=== PATIENT | female | born 1995 | race Hispanic/Latino ===

== ENCOUNTER 2020-03-17 14:48 | Observation (INO) | payer BC ==
[~2020-03-17] VITALS: Ht 167.6 cm; Wt 116.1 kg
[2020-03-17 16:38] LABS: APPEARANCE,URINE Turbid (CLEAR); BILIRUBIN,URINE Negative (NEGATIVE); COLOR,URINE Yellow (YELLOW); GLUCOSE, URINE (UA) TRACE mg/dL (NEGATIVE); KETONES,URINE 15 mg/dL (NEGATIVE); LEUKOCYTE ESTERASE ,URINE Moderate (NEGATIVE); NITRATE,URINE Positive (NEGATIVE); OCCULT BLOOD,URINE Negative (NEGATIVE); PH,URINE 6.5 (5.0-8.0); PROTEIN,URINE Trace mg/dL (NEGATIVE)
[2020-03-17 16:45] LABS: BACTERIA,URINE Moderate /HPF (None Seen); RBC,URINE None Seen /HPF (0-1)
[2020-03-17 16:46] LABS: WBC,URINE 26-50 /HPF (0-1)
[2020-03-17 16:55] VITALS: BP 117/65
== END 2020-03-17 17:09 | disposition home or self-care (01) ==
LOC: EDH 14:48 → LDH 14:49
PROVIDERS: ADMIT Obstetrics & Gynecology; ATTEND Obstetrics & Gynecology
DX: O60.03 Preterm labor without delivery, third trimester (principal); M54.9 Dorsalgia, unspecified; Z3A.35 35 weeks gestation of pregnancy
CPT/HCPCS: 81001; 87077; 87088; 87186; 99283; G0378

== ENCOUNTER 2020-04-25 10:51 | Inpatient (IN) | payer BC ==
[~2020-04-25] VITALS: Ht 167.6 cm; Wt 125.2 kg
[2020-04-26] MEDS ORDERED: ROPIVACAINE 0.2% 100ML VIAL 100 ML EP SCH (15:30)
[2020-04-26] MEDS ORDERED: MEPERIDINE-PF 50 MG/ML SYG IVP PRN (15:30)
[2020-04-26] MEDS ORDERED: LACTATED RINGERS 500 ML 500 ML IV PRN (15:30)
[2020-04-26] MEDS ORDERED: EPHEDRINE SULFATE 50 MG/ML AMPULE IVP PRN (15:30)
[2020-04-26] MEDS: AMPICILLIN 1GM+NS 50ML 50 ML IV SCH ×2 (15:30→20:07)
[2020-04-26] MEDS ORDERED: AMPICILLIN 2GM+NS 100ML 100 ML IV SCH (15:30)
[2020-04-26] MEDS ORDERED: NALOXONE HCL 0.4 MG/1 ML ML IV PRN (15:30)
[2020-04-26] MEDS ORDERED: DINOPROSTONE 10 MG VAGINAL SUPP VG SCH (16:00)
[2020-04-26] MEDS ORDERED: OXYTOCIN-LR 20 UNITS/1000 ML 1,000 ML IV SCH (16:30)
[2020-04-26] MEDS: LACTATED RINGERS 1000ML 1,000 ML IV PRN (16:30)
[2020-04-26 19:45] VITALS: BP 123/64
[2020-04-27] MEDS: AMPICILLIN 1GM+NS 50ML 50 ML IV SCH ×4 (00:10→12:13)
[2020-04-27] MEDS ORDERED: CITRIC ACID/SODIUM CITRATE 30 ML UDCUP ONE (00:11)
[2020-04-27] MEDS: LACTATED RINGERS 1000ML 1,000 ML IV PRN ×2 (00:19→08:08)
[2020-04-27] MEDS: PROMETHAZINE HCL 25 MG/ML 1ML AMPULE IM PRN ×3 (06:39→22:23)
[2020-04-27] MEDS ORDERED: FENTANYL CITRATE PF 50 MCG/1 ML 2ML VIAL ONE ×2 (09:06→17:14)
[2020-04-27] MEDS ORDERED: AMPICILLIN 2GM+NS 100ML 100 ML IV ONE (12:39)
[2020-04-27] MEDS ORDERED: CALDOLOR 800MG+NS 250ML 250 ML IV ONE (16:11)
[2020-04-27] MEDS ORDERED: CEFAZOLIN SODIUM 1 GM VIAL ONE (16:11)
[2020-04-27] MEDS ORDERED: CEFAZOLIN SODIUM 1 GM VIAL IVP PRN (16:15)
[2020-04-27] MEDS ORDERED: CALDOLOR 800MG+NS 250ML 250 ML IV PRN (16:15)
[2020-04-27] MEDS ORDERED: LIDOCAINE HCL-MPF 2% 10ML AMP IJ ONE (16:24)
[2020-04-27] MEDS ORDERED: DURAMORPH PF1 MG/ML 10ML AMP IV ONE (16:26)
[2020-04-27] MEDS ORDERED: CEFAZOLIN 3GM /D5W 100ML 100 ML IV PRN (16:30)
[2020-04-27] MEDS ORDERED: CEFAZOLIN SODIUM 1 GM VIAL IVP ONE (16:37)
[2020-04-27] MEDS ORDERED: GLYCOPYRROLATE 1 MG/5 ML SYRINGE ONE (16:41)
[2020-04-27] MEDS ORDERED: OXYTOCIN 10 USP UNITS/ML ONE (16:59)
[2020-04-27] MEDS ORDERED: MIDAZOLAM HCL 1 MG/ML 2ML VIAL ONE (17:13)
[2020-04-27] MEDS ORDERED: PROMETHAZINE HCL 25 MG/ML 1ML AMPULE IM PRN (17:15)
[2020-04-27] MEDS ORDERED: OXYTOCIN-LR 20 UNITS/1000 ML 1,000 ML IV PRN (17:15)
[2020-04-27] MEDS ORDERED: DEXTROSE 5 %-0.45 % NACL 1,000 ML IV PRN (17:15)
[2020-04-27] MEDS ORDERED: SODIUM CHLORIDE 0.9% 10 ML VIAL IVP PRN (17:15)
[2020-04-27] MEDS: MEPERIDINE-PF 75 MG/ML SYG IM PRN ×2 (17:49→22:24)
[2020-04-27 19:50] VITALS: BP 119/58; PULSE 107; RESP 20; TEMP 98.2
--- NOTE | 2020-04-27 20:20 | NUR ---
PT. TRANSFERRED VIA BED FROM L/D ROOM 106 TO POST ROOM 111, TRANSFER WELL TOLERATED.
--- NOTE | 2020-04-27 20:30 | NUR ---
EPIDURAL INFUSION COMPLETED, ORDERS RECEIVED BY JACKIE (L/D CHARGE NURSE) FROM [facility] TO DISCONTINUE EPIDURAL CATHETER.
--- NOTE | 2020-04-27 20:37 | NUR ---
EPIDURAL CATHETER DISCONTINUED, BLUISH TIP INTACT, PRESSURE APPLIED FOR 3 MINUTES. NO BLEEDING AND NO BRUISING NOTED. SITE REMAIN WNL.
[2020-04-27 23:40] VITALS: BP 122/68; PULSE 98; RESP 20; TEMP 99.5
[2020-04-28] MEDS: LACTATED RINGERS 1000ML 1,000 ML IV PRN (01:05)
[2020-04-28] MEDS: CALDOLOR 800MG+NS 250ML 250 ML IV SCH ×2 (01:05→10:08)
[2020-04-28] MEDS ORDERED: ACETAMINOPHEN EXTRA STRENGTH 500 MG TABLET PO PRN (02:45)
[2020-04-28] MEDS ORDERED: LANOLIN 30GM OINTMENT TP PRN (02:45)
[2020-04-28] MEDS ORDERED: HYDROCODONE/ACETAMINOPHEN 5/325 MG TAB PO PRN (02:45)
[2020-04-28] MEDS ORDERED: BISACODYL 10 MG SUPP.RECT RC PRN (02:45)
[2020-04-28 03:20] VITALS: BP 124/67; PULSE 103; RESP 20; TEMP 99.1
--- NOTE | 2020-04-28 06:30 | NUR ---
SIM CATHETER DC'D, PT INST TO CALL FOR ASSIST BEFORE GETTING OUT OF BED, VERBALIZED UNDERSTANDING.
[2020-04-28 07:25] VITALS: BP 102/65; PULSE 93; RESP 16; TEMP 98.3
[2020-04-28] MEDS ORDERED: DOCUSATE SODIUM 100 MG CAP PO SCH (09:00)
[2020-04-28] MEDS: SIMETHICONE 80 MG TAB.CHEW PO PRN ×2 (10:09→15:54)
[2020-04-28] MEDS: ACETAMINOPHEN-CODEINE 300/30MG TAB PO PRN ×2 (11:42→15:56)
[2020-04-28 11:43] VITALS: BP 119/71; PULSE 109; RESP 20; TEMP 98.1
--- NOTE | 2020-04-28 13:48 | NUR ---
HX of Depression and suicide attempts x2 Sw met with pt and her BF Sebastian Rios [phone] . This is first child for couple son YIN RIOS. Couple is from the [place] but both work at [employer] in [place]. They have a home in [place] and apt in [place] for work. After delivery they will stay in [place] and families will assist as needed and able. Couple have basic items for baby including a car seat and [facility] Dr Stringer will follow baby at vt. Pt reports hx of depression that was dx in 2010 by psychiatrist in [place] after a suicide attempt by overdose. Pt had psych care and was on meds for about 6 months and stopped. Pt reports having another episode of depression last Jul 2019 also with a suicide attempt also by overdose. Pt again got psych care and therapy but stopped shortly after. Pt denies any recent episodes of depression, ideations or suicide attempts. Educated couple on signs and symptoms of post depression and encourage them to contact PCP OB or psychiatrist for support and care. Couple reports good family support system in place. Pt denies hx of abuse, domestic violence, legal or CPS issues. Pt has hx of occasional THC use in 2018 but has not used since. Denies need for substance abuse resources. Couple denied need for referral or intervention at this time Addendum: 04/28/20 at 1405 by QUENTIN CADENA SS Amended: Links added.
[2020-04-28 16:45] VITALS: BP 115/76; PULSE 100; RESP 20; TEMP 98.8
--- NOTE | 2020-04-28 17:00 | NUR ---
PATIENT REPORTS POSITIVE FLATUS
[2020-04-28] MEDS ORDERED: IBUPROFEN 800 MG TAB PO SCH (17:15)
--- NOTE | 2020-04-28 17:15 | NUR ---
PATIENT STATES SHE IS WANTING TO BE DISCHARGED TODAY.
--- NOTE | 2020-04-28 18:02 | NUR ---
DISCHARGE INSTRUCTIONS READ AND EXPLAINED TO PATIENT. INCISION CARE REVIEWED WITH PATIENT AND , REEDUCATED ON SIGNS ON INFECTION. ADVISED PATIENT TO CONTINUE AMBULATING. QUESTIONS INVITED AND ANSWERED. PATIENT VERBALIZED UNDERSTANDING.
--- NOTE | 2020-04-28 19:45 | NUR ---
PATIENT DISCHARGES; Patient discharges per wheelchair baby held in her arms. She was wheeled out by [place] [facility] CNA to ER Exit. Patient out of the facility riding on their private car with her .
== END 2020-04-28 19:45 | disposition home or self-care (01) | DRG 788 ==
LOC: PREOBSVTOIN 16:50 → LDH 04-26 14:45 → WSH 04-27 20:20
PROVIDERS: ADMIT Obstetrics & Gynecology; ATTEND Obstetrics & Gynecology
PROC: 3E0P7VZ Introduction of Hormone into Female Reproductive, Via Natural or Artificial Opening (ICD-10-PCS; 2020-04-26)
PROC: 6A550ZT Pheresis of Cord Blood Stem Cells, Single (ICD-10-PCS; 2020-04-27)
PROC: 10D00Z1 Extraction of Products of Conception, Low, Open Approach (ICD-10-PCS; principal; 2020-04-27 16:30)
DX: O62.1 Secondary uterine inertia (principal); O99.824 Streptococcus B carrier state complicating childbirth; Z37.0 Single live birth; O99.214 Obesity complicating childbirth; O62.0 Primary inadequate contractions; E66.9 Obesity, unspecified; Z20.828 Contact with and (suspected) exposure to other viral communicable diseases; Z3A.40 40 weeks gestation of pregnancy

== ENCOUNTER 2020-05-01 14:40 | Emergency (ER) | payer BC | END 2020-05-01 15:45 | disposition home or self-care (01) | LOC: EDH 14:40 | DX: Z48.816 Encounter for surgical aftercare following surgery on the genitourinary system (principal); Z48.00 Encounter for change or removal of nonsurgical wound dressing; J45.909 Unspecified asthma, uncomplicated; Z90.49 Acquired absence of other specified parts of digestive tract; Z98.890 Other specified postprocedural states ==